=== PATIENT | male | born 1960 | race Native Hawaiian/Other Pacific Islander ===

== ENCOUNTER 2021-06-28 18:27 | Emergency (ER) | payer BC, SELFPAY ==
[2021-06-28 20:10] VITALS: BP 174/85; PULSE 63; RESP 16; TEMP 36.6; O2SAT 98; BMI 23.6
--- NOTE | 2021-06-28 20:23 | ED_ITS ---
HPI - Eye Problem General Chief complaint: Eye Problems Stated complaint: eye red Time Seen by Provider: 06/28/21 20:20 Source: patient Mode of arrival: ambulatory Limitations: no limitations History of Present Illness MD chief complaint: eye pain and eye redness Onset (ago): week(s) (1) Onset description: gradual Duration: constant Location: right eye Eye Symptoms: redness (blood ) and itching Place: home Mechanism: none Severity: mild If Pain, Quality: other (dull) Context: other (unknown trauma/coughing/vomiting/sneezing) Associated symptoms: none Treatments Prior to Arrival: none Related Data Previous Rx's Medication Instructions Recorded erythromycin 5 mg/gram (0.5 %) eye 0.5 inch OPHTHALMIC (EYE) BID 7 06/28/21 ointment Days #3.5 g Allergies Allergy/AdvReac Type Severity Reaction Status Date / Time No Known Allergies Allergy Verified 06/28/21 20:09 Review of Systems Review of Systems: Constitutional : No Fever, No Chills ENT/Mouth : No sore throat, No Rhinorrhea Eyes: No Eye Pain, No Swelling,pos Redness Cardiovascular : No Chest Pain, No SOB Respiratory : No Cough, No Sputum, No Wheezing Gastrointestinal : No Nausea, No Vomiting Neuro : No Weakness, No Numbness, No Dizziness, No Headache PMFSH Past Medical History Attestation statement: The following information was validated with the patient. Medical History Hypertension No known health problems Social History Social History Patient Tobacco Use Status: Never used Tobacco Advance Directives: No Advance Directives Information Provided: Yes Physical Exam Vital Signs: Vital Signs: Last Vital Signs Temp 98 F 06/28/21 20:10 Pulse 63 06/28/21 20:10 Resp 16 06/28/21 20:10 BP 174/85 H 06/28/21 20:10 Pulse Ox 98 06/28/21 20:10 Body Mass Index 23.6 Appearance: Alert. Oriented X3. No acute distress. Eyes: Pupils equal, round and reactive to light. R eye medium medial aspect red subconj hemorrhage normal pupil no hyphema no visual field cuts ENT: Pharynx normal. Neck: Normal inspection. Neck supple. CVS: Normal heart rate and rhythm. Pulses normal. Respiratory: No respiratory distress. Breath sounds normal. Abdomen: Soft and nontender. Skin: Skin warm and dry. Normal skin color. Normal skin turgor. Extremities: No lower extremity edema. No calf ttp Neuro: Oriented X 3. No motor deficit. No sensory deficit. MDM - Eye Problem MDM Narrative Medical decision making narrative: 60 yo male with HTN, no visual field cuts, no hyphema unknown cause of hyphema denies any other prior bleeding issues no AC therapy - exam consitent with subconj hemorrhage - will give expectant course, does not wear contacts Discharge Plan Discharge Clinical Impression: Subconjunctival hemorrhage Qualifiers: Laterality: right Qualified Code(s): H11.31 - Conjunctival hemorrhage, right eye Patient Disposition: Home, Self-Care Instructions: Subconjunctival Hemorrhage (ED) Additional Instructions: return to ED for any worsening symptoms or concerns Prescriptions: New erythromycin 5 mg/gram (0.5 %) ointment 0.5 inch ophthalmic (eye) BID 7 Days Qty: 3.5 RF: 0 Print Language: [place]
== END 2021-06-28 20:51 | disposition home or self-care (01) ==
LOC: HO.ED 20:46
PROVIDERS: Emergency Provider Emergency Medicine
DX: H11.31 Conjunctival hemorrhage, right eye (principal)
CPT/HCPCS: 99282

== ENCOUNTER 2022-08-30 14:20 | Emergency (ER) | payer BC, SELFPAY ==
--- NOTE | ~2022-08-30 | XR_ITS ---
EXAMINATION: XR KNEE, RIGHT CLINICAL INFORMATION: History of gout COMPARISON: None TECHNIQUE: Four views of the right knee. FINDINGS: Small suprapatellar knee joint effusion. Bones are normal anatomic alignment. I do not appreciate any acute fracture or dislocation. Mild joint space loss in the medial compartment likely representing some underlying arthritic change. No bony destructive lesions or periosteal reaction. Mild vascular calcification noted XR/XR knee RT 4V IMPRESSION: Small suprapatellar knee joint effusion. Mild degenerative changes but no acute bony abnormality.
[2022-08-30 14:44] VITALS: BP 128/77; PULSE 108; RESP 18; TEMP 36.9; O2SAT 99; BMI 25.0
--- NOTE | 2022-08-30 14:46 | ED_ITS ---
HPI - Extremity Problem General Chief complaint: General Medical Stated complaint: leg swelling Time Seen by Provider: 08/30/22 14:49 Source: patient Mode of arrival: ambulatory Limitations: language barrier ([place]er Speaking) History of Present Illness HPI Narrative: 62yoM c PMHx of Gout who is [place]-speaking presenting to the ED with complaints of right knee pain/swelling for the past few days reports this is a flare-up of his gout. Reports that he is usually prescribed something for pain/inflammation. He brought his prednisone prescription that he no longer has. Denies recent falls or any other symptoms complaints or concerns at this time. Reports that he does not need any imaging he knows this is gout flare up and he just needs medications to control this. MD Complaint: joint swelling and joint pain Onset (ago): day(s) (The past few days worse today) Pain Consistency: constant Location: right and knee Quality: aching and constant Radiation: none Relieving factors: nothing Exacerbating factors: range of motion, weight bearing, walking and palpation Associated symptoms: denies other symptoms Context: history of gout Related Data Previous Rx's Medication Instructions Recorded erythromycin 5 mg/gram (0.5 %) eye 0.5 inch ophthalmic (eye) BID 7 06/28/21 ointment days #3.5 grams indomethacin 50 mg capsule 50 mg PO Q8H gout 5 days #15 caps 08/30/22 oxycodone 5 mg tablet 5 mg PO Q6H PRN pain #14 tabs 08/30/22 prednisone 20 mg tablet 40 mg PO DAILY inflammation 5 days 08/30/22 #10 tabs Allergies Allergy/AdvReac Type Severity Reaction Status Date / Time No Known Allergies Allergy Verified 08/30/22 14:43 Review of Systems Review of Systems: Constitutional : No Weight loss, No Fever, No Chills, No Night Sweats, No Fatigue, No Malaise ENT/Mouth : No Hearing loss, No Ear Pain, No Nasal Congestion, No Sinus Pain, No Hoarseness, No sore throat, No Rhinorrhea, No Swallowing Difficulty Eyes: No Eye Pain, No Swelling, No Redness, No Foreign Body, No Discharge, No Vision Changes Cardiovascular : No Chest Pain, No SOB, No Dyspnea on Exertion, No Orthopnea, No Edema, No Palpitations Respiratory : No Cough, No Sputum, No Wheezing, No Smoke Exposure, No Dyspnea Gastrointestinal : No Nausea, No Vomiting, No Diarrhea, No Constipation, No abdominal Pain, No Hematochezia, No Melena Genitourinary : no irregular bleeding, No Dysuria, No Urinary Frequency, No Hematuria, No Urinary Incontinence, No Urgency, No Flank Pain, No Urinary Flow Changes, No Hesitancy Musculoskeletal : + Right knee joint pain/swelling, No Myalgias Skin : No Skin Lesions, No rash Neuro : No Weakness, No Numbness, No Paresthesias, No Loss of Consciousness, No Dizziness, No Headache Psych : No Anxiety/Panic, No Depression, No SI/HI/AH/VH, No Social Issues, Heme/Lymph: No Bruising, No Bleeding,No Lymphadenopathy Endocrine : No Polyuria, No Polydipsia, No Temperature Intolerance Yes all other systems are reviewed and are negative [facility] Past Medical History Attestation statement: The following information was validated with the patient. Source: old records reviewed and nursing notes reviewed Medical History Hypertension No known health problems Social History Social History Patient Tobacco Use Status: Never used Tobacco Advance Directives: No Advance Directives Information Provided: No Physical Exam Vital Signs: Vital Signs: Last Vital Signs Temp 98.4 F 08/30/22 14:44 Pulse 108 H 08/30/22 14:44 Resp 18 08/30/22 14:44 BP 128/77 08/30/22 14:44 Pulse Ox 99 08/30/22 14:44 O2 Del Method 08/30/22 14:44 BMI result Body Mass Index 25.0 vital signs have been reviewed as normal and appeared to be correct. Blood pressure normal Heart rate normal. Respiration rate normal. Temperature normal. Oxygen saturation normal. Appearance: Alert. Oriented X3. No acute distress. Head: Normal external exam. Normocephalic. Atraumatic. Eyes: PERRLA. EOMI. Conjunctiva and sclera normal. Eyelids normal. ENT: Pharynx normal. Uvula midline. Moist mucous membranes. Neck: Normal inspection. Neck supple. FROM. CVS: Normal heart rate and rhythm. Respiratory: No respiratory distress. Painless inspiration. Skin: Skin warm and dry. Normal skin color. Normal skin turgor. No rashes/lesions/lacerations noted. Extremities: Patient moderate tenderness palpation to the right knee with soft tissue swelling. Not consistent with septic joint there is no erythema. Patient has full range of motion of the right knee. No obvious ligamentous or tendon injury noted. No lower extremity edema or calf tenderness noted. Otherwise all other extremities exhibit normal range of motion nontender. Neuro: Oriented X 3. No motor deficit. No sensory deficit. Reflexes normal. Normal steady gait. No focal neuro deficits noted. Vascular: + radial pulses/+ 2 distal pedal pulses/+2 dorsalis pedis b/l. Normal cap refill. No cyanosis noted to upper extremity nails and lower extremity toes nails. Course Course Course Narrative: Patient with gout flare-up. Needs refill for medications. Will DC home with prednisone/indomethacin/oxycodone. No lower extremity edema or calf tenderness or recent falls or trauma therefore no imaging indicated. Therefore at this time will DC home instructions return with any new or worsening symptoms to follow up with primary care provider. Patient understands agrees with this plan. Medical Decision Making Independent Interpretation Interpretation: right knee xray FINDINGS: Small suprapatellar knee joint effusion. Bones are normal anatomic alignment. I do not appreciate any acute fracture or dislocation. Mild joint space loss in the medial compartment likely representing some underlying arthritic change. No bony destructive lesions or periosteal reaction. Mild vascular calcification noted? XR/XR knee RT 4V IMPRESSION: Small suprapatellar knee joint effusion. Mild degenerative changes but no acute bony abnormality. Radiology Impression Discussion of test interpretation with radiology: I have reviewed the radiologist's reading. Radiologist Impression: Knee Xray Discharge Plan Discharge Clinical Impression: Gout, Medication refill Patient Disposition: Home, Self-Care Instructions: Low Purine Diet (ED), Gout (ED) Prescriptions: New indomethacin 50 mg capsule 50 mg PO Q8H 5 Days Qty: 15 1RF Rx Instructions: administer with food or milk prednisone 20 mg tablet 40 mg PO DAILY 5 Days Qty: 10 1RF oxycodone 5 mg tablet 5 mg PO Q6H PRN (Reason: pain) Qty: 14 0RF Rx Instructions: Partial Fill upon patient request. No Action erythromycin 5 mg/gram (0.5 %) ointment 0.5 inch ophthalmic (eye) BID 7 Days Qty: 3.5 0RF Referrals: Physician,Unknown J [Primary Care Provider] - (your pcp) Interventions: ED Discharge Assessment Last Done: 08/30/22 14:52 Print Language: [place]
--- NOTE | 2022-08-30 16:17 | PC.NURSE ---
pt requested xray as he was getting ready to be discharged, pt was not discharged had xray and will be now discharged.
== END 2022-08-30 16:17 | disposition home or self-care (01) ==
PROVIDERS: Emergency Provider Emergency Medicine
DX: M10.9 Gout, unspecified (principal); M25.561 Pain in right knee; M25.461 Effusion, right knee; I10 Essential (primary) hypertension; Z76.0 Encounter for issue of repeat prescription
CPT/HCPCS: 73564; 99282; 99283

== ENCOUNTER 2023-11-28 11:14 | Emergency (ER) | payer BC, SELFPAY ==
[2023-11-28 11:18] VITALS: BP 160/83; PULSE 59; RESP 16; TEMP 36; O2SAT 98; BMI 23.9
--- NOTE | 2023-11-28 11:18 | ED_ITS ---
HPI - General Adult General Chief complaint: Urogenital-Male Stated complaint: burning upon urination Time Seen by Provider: 11/28/23 12:00 Source: patient, RN notes reviewed and moving consultant (Surinamese) Mode of arrival: ambulatory Limitations: no limitations History of Present Illness HPI narrative: 63-year-old [place]e-speaking male with pmhx significant for hypertension presents to the ED today with concern for burning with urination x1 mo. He states this has been going on for approximately 1 month and has been gradually improving. He states that it is not as intense as it was 1 month ago. He admits to having intercourse outside of his marriage and endorses concern for sexually transmitted infection. He denies fever, chills, back or flank pain, abdominal pain, increased urinary frequency or urgency, urinary retention, hematuria, penile lesions or discharge, groin or testicular pain. Denies history of smoking tobacco. Denies any other concern at present. On initial evaluation, patient is hypertensive however states that he has not taken his blood pressure medications as he typically takes these at night. admission liaison utilized during visit to communicate with patient. Related Data Previous Rx's Medication Instructions Recorded erythromycin 5 mg/gram (0.5 %) eye 0.5 inch ophthalmic (eye) BID 7 06/28/21 ointment days #3.5 grams indomethacin 50 mg capsule 50 mg PO Q8H gout 5 days #15 caps 08/30/22 oxycodone 5 mg tablet 5 mg PO Q6H PRN pain #14 tabs 08/30/22 prednisone 20 mg tablet 40 mg (2 x 20 mg) PO DAILY 08/30/22 inflammation 5 days #10 tabs phenazopyridine 100 mg tablet 100 mg PO Q8H 6 doses #24 tabs 11/28/23 (Pyridium) Allergies Allergy/AdvReac Type Severity Reaction Status Date / Time No Known Allergies Allergy Verified 11/28/23 11:21 Review of Systems Review of Systems: Constitutional: No fever, chills, fatigue, night sweats, weight changes ENT/Mouth: No ear pain, hearing loss, nasal congestion, sinus pain, rhinorrhea, sore throat Eyes: No eye pain, swelling, redness, vision changes, discharge Cardio: No chest pain, palpitations, MCKEON, orthopnea, peripheral edema Pulm: No SOB, cough, sputum, wheezing, dyspnea, hemoptysis GI: No nausea, vomiting, hematemesis, abdominal pain, diarrhea, constipation, hematochezia, melena : No irregular bleeding,frequency, urgency, hesitancy, hematuria, flank pain, urinary flow changes, urinary incontinence or retention, +dysuria MSK: No back pain, neck pain, joint pain, myalgias Skin: No lesions, rashes Neuro: No weakness, numbness, paresthesias, LOC, dizziness, headache Psych: No anxiety/panic, depression, SI/HI, AH/VH All other systems reviewed and are negative. [facility] Past Medical History Attestation statement: The following information was validated with the patient. Source: old records reviewed and nursing notes reviewed Medical History Hypertension No known health problems Social History Social History Patient Tobacco Use Status: Never used Tobacco Advance Directives: No Advance Directives Information Provided: Yes Physical Exam ED Vital Signs: Vital Signs - 24 hr 11/28/23 11:18 11/28/23 16:17 11/28/23 16:18 Temperature 96.8 F 97.2 F 97.2 F Pulse Rate 59 54 54 Respiratory Rate 16 16 16 Blood Pressure 160/83 H 170/78 H 170/78 H Pulse Oximetry 98 98 Oxygen Delivery Method Room Air Room Air BMI result Body Mass Index 23.9 Hypertensive, vitals otherwise WNL Const General: cooperative, healthy appearing, comfortable and no acute distress Nutritional Appearance: average body habitus Orientation/consciousness: patient oriented x3 Limitations: no limitations [facility] Head: Yes normal to inspection, Yes normocephalic and Yes atraumatic Eyes General: appearance normal, both eyes and all related structures Neck Neck: Yes normal visual inspection and Yes no lymphadenopathy Resp Effort & Inspection: normal respiratory effort Auscultation: clear to auscultation bilaterally Cardio Rate: regular rate Rhythm: regular rhythm GI Other: + abdomen soft, nondistended, nontender to palpation, no rebound tenderness or g uarding, normoactive bowel sounds x4. Bladder not palpable. Other: + male genital exam deferred per patient General: Yes no CVA tenderness Back/Spine/Pelvis Back: no CVA tenderness Skin General skin exam: no rashes or lesions noted Neuro General: patient oriented x3 and gait normal Gait exam (Neuro): Normal gait present Extrem General: Yes normal to inspection Course Course Course Narrative: This is a rapid medical exam: Additional HPI, ROS, PE not included below will be deferred to primary provider. Patient is a 63-year-old [place]inamese speaking male presenting to the ED with complaint of burning with urination for the past month. Denies fevers, hematuria, back or flank pain. Plan: UA, CT NG urine Reevaluation(s) Reevaluation #1: 1600-- urine does not show evidence of infection or blood. Gonorrhea and chlamydia not detected in urine. There is no clear etiology for patient's dysuria however it is reassuring that it has been improving. He is requesting something for the discomfort so I will send Pyridium to pharmacy for him to take. I will give him contact information to [facility] if he should have any desire for full STD panel in the future. He is agreeable with this. I educated him on the importance of following up with his PCP if symptoms do not resolve. Patient has remained stable throughout ED visit today. Discussed worrisome signs and symptoms and when to return to the ED. All questions answered at this time. Patient is agreeable with disposition and stable for discharge. Medical Decision Making Medical Decision Making [facility] Narrative: 63-year-old [place]inamese-speaking male with pmhx significant for hypertension presents to the ED today with concern for burning with urination x1 mo. Hypertensive, vitals otherwise WNL. He is nontoxic appearing in no acute distress. Abdomen is soft, nondistended nontender, no rebound or guarding, normoactive bowel sounds x4. No CVAT bilaterally. Bladder not palpable. Male genital exam deferred per patient. Differential diagnosis includes urinary tract infection, gonorrhea, chlamydia, urethritis Plan for UA and gonorrhea/chlamydia testing Differential Diagnosis Differential Diagnoses: The differential diagnosis associated with the presentation includes As above Admission/Observation Not indicated Lab Data [facility] Lab Attestation statement: I reviewed the patient's lab results. As above Labs: Lab Results 11/28/23 Range/Units 11:51 Urine Color Yellow Urine Appearance Clear Urine pH 5.5 (5.0-9.0) Ur Specific [place] 1.015 (1.005-1.025) Urine Protein Negative (Neg-Trace) mg/dL Urine Glucose (UA) Negative (Negative) mg/dL Urine Ketones 15 (Negative) mg/dL Urine Blood Negative (Negative) Urine Nitrite Negative (Negative) Ur Leukocyte Esterase Negative (Negative) Chlam trachomat DNA PCR NOT DETECTED (Not Detect.) N.gonorrhoeae DNA (PCR) NOT DETECTED (Not Detect.) External Record Review External record reviewed: Inpatient record Prescription Management I considered prescription management with: Other (Pyridium) Chronic Conditions Patient?s care impacted by: Hypertension Social Determinants Patient?s care significantly limited by Social Determinants of Health including: Other Social Determinant of Health Critical Care Time Critical Care Time Critical Care Time: No Discharge Plan Discharge Clinical Impression: Dysuria Patient Disposition: Home, Self-Care Instructions: Dysuria (ED) Additional Instructions: Your urine was negative for infection. You tested negative for both gonorrhea and chlamydia. If you are so inclined, you may obtain full panel STD testing to test for other STDs including HIV, Hepatitis B&C, and syphilis which can be done by your PCP or at a local clinic. [facility] can help facilitate these tests. They often have walk-in hours. If new or worsening symptoms occur, please return to the ED. In the case of any emergency, call 911. [facility]: [address] [place] [address] [address] [place] [address] [phone] You have also been provided with a referral to a urologist if you desire to establish care Prescriptions: New phenazopyridine [Pyridium] 100 mg tablet 100 mg PO Q8H Qty: 24 0RF No Action erythromycin 5 mg/gram (0.5 %) ointment 0.5 inch ophthalmic (eye) BID 7 Days Qty: 3.5 0RF indomethacin 50 mg capsule 50 mg PO Q8H 5 Days Qty: 15 1RF Rx Instructions: administer with food or milk prednisone 20 mg tablet 40 mg PO DAILY 5 Days Qty: 10 1RF oxycodone 5 mg tablet 5 mg PO Q6H PRN (Reason: pain) Qty: 14 0RF Rx Instructions: Partial Fill upon patient request. Referrals: [facility] [Provider Group] Interventions: ED Discharge Assessment Last Done: 11/28/23 16:18 Discharge Date/Time: 11/28/23 16:20 Print Language: [place]amese
[2023-11-28 12:04] LABS: Appearance Urine Clear; Color Urine Yellow; Glucose Urine UA Negative (Negative); Leukocyte Esterase Urine Negative (Negative); Nitrite Urine Negative (Negative); PH 5.5 (5.0-9.0); Specific Gravity - Urine 1.015 (1.005-1.025); Urine Blood Negative (Negative); Urine Ketones 15 mg/dL (Negative); Urine Protein Negative (Neg-Trace)
[2023-11-28 14:27] LABS: CT PCR NOT DETECTED (Not Detect.); NG PCR NOT DETECTED (Not Detect.)
[2023-11-28 16:17] VITALS: BP 170/78; PULSE 54; RESP 16; TEMP 36.2; O2SAT 98
[2023-11-28 16:18] VITALS: BP 170/78; PULSE 54; RESP 16; TEMP 36.2
== END 2023-11-28 16:20 | disposition home or self-care (01) ==
PROVIDERS: Registered Nurse Emergency; Emergency Provider Emergency Medicine
DX: R30.0 Dysuria (principal); R30.9 Painful micturition, unspecified; I10 Essential (primary) hypertension; Z72.89 Other problems related to lifestyle
CPT/HCPCS: 0353U; 81003; 99283